=== PATIENT | male | born 1955 | race Caucasian/White ===

== ENCOUNTER 2020-07-23 13:11 | Emergency (ER) | payer MEDICAID, SELFPAY ==
[~2020-07-23] VITALS: Ht 188 cm; Wt 106.0 kg
--- NOTE | 2020-07-23 13:50 | NUR ---
PT BROUGHT BACK TO ROOM FROM TRIAGE VIA WHEELCHAIR. PT STATED THAT HE WAS AT [employer] AND TRIPPED OVER A SMALL CURB, LANDING ON RIGHT SIDE AND HITTING RIGHT SIDE OF FACE ON THE GROUND. PT CO PAIN IN RIGHT SHOULDER, NECK AND SIDE OF FACE. SMALL ABRASION NOTED TO RIGHT EYEBROW. PT DENIES LOC. PT CO NUMBNESS/TINGLING IN HIS RIGHT 4TH AND 5TH FINGERS.
--- NOTE | 2020-07-23 14:00 | NUR ---
PT TO CT
[2020-07-23 14:48] VITALS: BP 129/63
--- NOTE | 2020-07-23 15:30 | NUR ---
C COLLAR REMOVED PER ORDER
[2020-07-23] MEDS ORDERED: DIAZEPAM 5 MG TABLET ONE (16:11)
[2020-07-23] MEDS ORDERED: KETOROLAC 30 MG/1 ML ONE (16:11)
--- NOTE | 2020-07-23 16:24 | NUR ---
DISCHARGE INSTRUCTIONS REVIEWED WITH PT ALL QUESTIONS ANSWERED AT THIS TIME
[2020-07-23] MEDS ORDERED: DIAZEPAM 5 MG TABLET PO ONE (16:30)
[2020-07-23] MEDS ORDERED: KETOROLAC 30 MG/1 ML IM ONE (16:30)
== END 2020-07-23 16:26 | disposition home or self-care (01) ==
LOC: ED 16:00
DX: S16.1XXA Strain of muscle, fascia and tendon at neck level, initial encounter (principal); S05.12XA Contusion of eyeball and orbital tissues, left eye, initial encounter; S09.90XA Unspecified injury of head, initial encounter; M54.2 Cervicalgia; W01.0XXA Fall on same level from slipping, tripping and stumbling without subsequent striking against object, initial encounter; Y93.89 Activity, other specified; Y92.410 Unspecified street and highway as the place of occurrence of the external cause; Y99.8 Other external cause status
CPT/HCPCS: 70450; 70486; 72125; 73030; 96372; 99285; J1885

== ENCOUNTER 2020-10-26 08:39 | Inpatient (IN) | payer MEDICAID, OTHER ==
[~2020-10-26] VITALS: Ht 188 cm; Wt 94.6 kg
--- NOTE | 2020-10-26 08:51 | NUR ---
Secondary RN triaging pt. MD at bedside for exam. Noted eyewear manufacturing tech at bedside on arrival of EMS obtaining 12 lead EKG.
[2020-10-26] MEDS ORDERED: methylPREDNISolone SOD SUCC 125 MG/2 ML ONE (08:58)
[2020-10-26] MEDS ORDERED: CEFTRIAXONE 1,000 MG in DEXTROSE 5% 50 ML IVPB ONE (09:00)
[2020-10-26] MEDS ORDERED: methylPREDNISolone SOD SUCC 125 MG/2 ML IVPush ONE (09:00)
[2020-10-26] MEDS ORDERED: SODIUM CHLORIDE 0.9% 1,000ML IVBOLUS ONE (09:00)
[2020-10-26] MEDS ORDERED: SODIUM CHLORIDE FLUSH 10ML SYR IVF ONE (09:00)
--- NOTE | 2020-10-26 09:09 | NUR ---
First set of BC and basic labs drawn from EMS IV start after cleaning site well. IVF and Solumedrol then given as ordered after PCXR completed. fuel quality tech will be notified of labs already drawn. Rocephin at bedside and ready for admin after second set of BC are drawn.
[2020-10-26 09:21] LABS: BASOPHILS % (AUTO) 0 % (0-1); EOSINOPHILS % (AUTO) 0 % (1-7); LYMPHOCYTES % (AUTO) 13 % (22-44); MEAN CORPUSCULAR HEMOGLOBIN 31.3 pg (27.5-34.5); MEAN CORPUSCULAR HGB CONC 34.8 g/dL (33.2-36.2); MONOCYTES % (AUTO) 10 % (2-9); NEUTROPHILS % (AUTO) 77 % (42-75); PLATELET COUNT 135 x10^3/uL (130-400); RED CELL DISTRIBUTION WIDTH 13.2 % (9.4-14.8)
[2020-10-26 09:29] LABS: ALBUMIN 2.9 g/dL (3.4-5.0); ANION GAP 12 mmol/L (5-15); CALCIUM 7.8 mg/dL (8.5-10.1); CHLORIDE 96 mmol/L (98-107); CREATININE 1.04 mg/dL (0.7-1.3)
--- NOTE | 2020-10-26 09:45 | NUR ---
Pt started on Rocephin now that both sets BC completed. Reviewed PCXR results with pt and son with noted radiology stated bilat pna with likely Covid infection
--- NOTE | 2020-10-26 10:28 | NUR ---
MD at bedside to discuss findings and plan of care.
[2020-10-26] MEDS ORDERED: AZITHROMYCIN 500 MG in SODIUM CHLORIDE 0.9% 250 ML IV ONE (10:30)
[2020-10-26] MEDS ORDERED: ALBUTEROL SULFATE 2.5 MG/3 ML NPPB ONE (10:30)
[2020-10-26] MEDS ORDERED: ALLO300T PO (10:37)
[2020-10-26] MEDS ORDERED: METF500T17 PO (10:37)
[2020-10-26] MEDS ORDERED: ALBU90AE2 INH (10:37)
--- NOTE | 2020-10-26 10:38 | NUR ---
Parital med rec completed. Pt does not have a list of meds and does not recall any of his other medications than those placed on med rec.
[2020-10-26] MEDS ORDERED: ONDANSETRON 2MG/ML, 2ML IVPush PRN (11:00)
[2020-10-26] MEDS ORDERED: ONDANSETRON ODT 4 MG PO PRN (11:00)
[2020-10-26] MEDS ORDERED: Enoxaparin 1 mg/kg protocol SQ SCH (11:00)
--- NOTE | 2020-10-26 11:05 | NUR ---
mobile home technician at bedside for ABG and other labs to be drawn. Son present with soup as pt requested. Pt without acute change and aware we are awaiting a bed assignment. Son notified that visitation must now be stopped and that during pt's stay here there will be no visitation allowed. Son stated understanding, said goodbye to pt and left dept.
--- NOTE | 2020-10-26 12:11 | NUR ---
Report given to Zeenta Epperson, RN and pt readied for transfer to floor.
--- NOTE | 2020-10-26 13:05 | NUR ---
Pt waiting for transport staff to go up. Quick report to break RN that report has been called given.
--- NOTE | 2020-10-26 13:44 | NUR ---
Pt remains in room without having been taken up. Throughput RN notified. Awaiting transport staff availability.
[2020-10-26 14:10] LABS: MICROSCOPIC INDICATED
[2020-10-26] MEDS: INSULIN LISPRO 100 UNITS/ML, PEN SQ-INSULIN SCH ×3 (14:17→21:05)
[2020-10-26 14:53] VITALS: BP 113/69
[2020-10-26] MEDS: SODIUM CHLORIDE 0.9% 1,000 ML IV SCH (14:55)
[2020-10-26] MEDS: BENZONATATE 100 MG CAPSULE PO SCH ×2 (15:44→21:05)
[2020-10-26] MEDS: ENOXAPARIN 40 MG/0.4 ML SQ SCH (16:54)
[2020-10-26 20:36] VITALS: BP 123/76
[2020-10-26] MEDS: CEFTRIAXONE 2,000 MG in DEXTROSE 5% 50 ML IV SCH (21:06)
[2020-10-26] MEDS: ACETAMINOPHEN 325 MG TABLET PO PRN (21:19)
[2020-10-26] MEDS: ALBUTEROL HFA 90 MCG/SPRAY INH PRN (22:20)
[2020-10-27 00:28] VITALS: BP 111/68
[2020-10-27] MEDS: SODIUM CHLORIDE 0.9% 1,000 ML IV SCH (03:49)
[2020-10-27] MEDS: ENOXAPARIN 40 MG/0.4 ML SQ SCH ×2 (05:04→16:25)
[2020-10-27 06:23] LABS: BASOPHILS % (AUTO) 0 % (0-1); EOSINOPHILS % (AUTO) 0 % (1-7); LYMPHOCYTES % (AUTO) 16 % (22-44); MEAN CORPUSCULAR HEMOGLOBIN 31.1 pg (27.5-34.5); MEAN CORPUSCULAR HGB CONC 34.5 g/dL (33.2-36.2); MEAN PLATELET VOLUME 8.4 fL (7.4-10.4); MONOCYTES % (AUTO) 11 % (2-9); NEUTROPHILS % (AUTO) 72 % (42-75); PLATELET COUNT 164 x10^3/uL (130-400); RED BLOOD COUNT 4.69 x10^6/uL (4.38-5.82); RED CELL DISTRIBUTION WIDTH 13.4 % (9.4-14.8)
[2020-10-27 07:14] LABS: ALANINE AMINOTRANSFERASE 51 U/L (12-78); ALBUMIN 2.5 g/dL (3.4-5.0); ANION GAP 10 mmol/L (5-15); CALCIUM 8.3 mg/dL (8.5-10.1); CHLORIDE 103 mmol/L (98-107); CREATININE 0.92 mg/dL (0.7-1.3)
[2020-10-27 07:17] LABS: ALKALINE PHOSPHATASE 51 U/L (45-117); BILIRUBIN,TOTAL 0.4 mg/dL (0.2-1.0)
[2020-10-27 07:22] VITALS: BP 113/73
[2020-10-27] MEDS: ALBUTEROL HFA 90 MCG/SPRAY INH PRN (07:56)
[2020-10-27] MEDS: BENZONATATE 100 MG CAPSULE PO SCH ×3 (07:57→21:21)
[2020-10-27] MEDS: INSULIN LISPRO 100 UNITS/ML, PEN SQ-INSULIN SCH ×4 (07:57→21:22)
[2020-10-27] MEDS: DEXAMETHASONE 4 MG/ML, 5ML IVPush SCH (07:58)
[2020-10-27] MEDS ORDERED: REMDESIVIR 200 MG in SODIUM CHLORIDE 0.9% 250 ML IVPB ONE (09:30)
[2020-10-27] MEDS ORDERED: SODIUM CHLORIDE 0.9% 1,000 ML IV SCH (11:00)
[2020-10-27 12:54] VITALS: BP 127/78
[2020-10-27] MEDS ORDERED: FUROSEMIDE 40 MG/4 ML IV ONE (14:30)
[2020-10-27] MEDS: ACETAMINOPHEN 325 MG TABLET PO PRN (16:24)
[2020-10-27] MEDS: ASCORBIC ACID 500 MG TABLET PO SCH (16:24)
[2020-10-27 19:30] VITALS: BP 114/76
[2020-10-27] MEDS ORDERED: INSULIN GLARGINE 100 UNITS/ML, PEN SQ-INSULIN SCH (21:00)
[2020-10-27] MEDS: CEFTRIAXONE 2,000 MG in DEXTROSE 5% 50 ML IV SCH (21:28)
[2020-10-28] VITALS (19 sets, daily range): BP systolic 96–125; BP diastolic 56–73
[2020-10-28] MEDS: GUAIFENESIN ER 600 MG TABLET PO SCH ×3 (00:57→20:28)
[2020-10-28] MEDS: ACETAMINOPHEN 325 MG TABLET PO PRN (01:43)
[2020-10-28] MEDS: ALBUTEROL HFA 90 MCG/SPRAY INH PRN (05:05)
[2020-10-28 05:47] LABS: ALANINE AMINOTRANSFERASE 46 U/L (12-78); ALBUMIN 2.4 g/dL (3.4-5.0); ANION GAP 8 mmol/L (5-15); CALCIUM 8.3 mg/dL (8.5-10.1); CHLORIDE 105 mmol/L (98-107)
[2020-10-28] MEDS: ENOXAPARIN 40 MG/0.4 ML SQ SCH (05:50)
[2020-10-28 06:06] LABS: ALKALINE PHOSPHATASE 56 U/L (45-117); BILIRUBIN,TOTAL 0.5 mg/dL (0.2-1.0); TOTAL PROTEIN 6.8 g/dL (6.4-8.2)
[2020-10-28] MEDS ORDERED: POTASSIUM CHLORIDE 20 MEQ TAB.ER.PRT PO ONE (06:30)
[2020-10-28] MEDS: REMDESIVIR 100 MG in SODIUM CHLORIDE 0.9% 250 ML IVPB SCH (08:57)
[2020-10-28] MEDS: CHOLECALCIFEROL 1,000 UNIT TABLET PO SCH (08:59)
[2020-10-28] MEDS: BENZONATATE 100 MG CAPSULE PO SCH ×3 (08:59→20:28)
[2020-10-28] MEDS: DEXAMETHASONE 4 MG/ML, 5ML IVPush SCH (09:00)
[2020-10-28] MEDS: ZINC SULFATE 220 MG CAPSULE PO SCH (09:00)
[2020-10-28] MEDS: FUROSEMIDE 40 MG/4 ML IV SCH ×2 (09:00→18:23)
[2020-10-28] MEDS: ASCORBIC ACID 500 MG TABLET PO SCH ×2 (09:00→18:23)
[2020-10-28] MEDS: THIAMINE 100MG TABLET PO SCH (09:00)
[2020-10-28] MEDS: INSULIN LISPRO 100 UNITS/ML, PEN SQ-INSULIN SCH ×4 (09:18→20:27)
[2020-10-28] MEDS: INSULIN GLARGINE 100 UNITS/ML, PEN SQ-INSULIN SCH ×2 (09:19→20:27)
[2020-10-28] MEDS ORDERED: PROPOFOL 100 ML IV ONE ×2 (11:22→14:10)
[2020-10-28] MEDS ORDERED: SUCCINYLCHOLINE 20 MG/ML, 10ML ONE (14:14)
[2020-10-28] MEDS ORDERED: ETOMIDATE 20 MG/10 ML ONE (14:14)
[2020-10-28] MEDS ORDERED: PROPOFOL 10 MG/ML, 100ML IV ONE (14:14)
[2020-10-28] MEDS ORDERED: GLUCAGON 1 MG IM PRN (14:30)
[2020-10-28] MEDS ORDERED: PHARMACY MAY ADJ FOR RENAL FX MC SCH (14:30)
[2020-10-28] MEDS ORDERED: LIDOCAINE-MPF 1%, 2ML ENDO PRN (14:30)
[2020-10-28] MEDS ORDERED: SENNA 176 MG/5 ML ORAL SOL NG PRN (14:30)
[2020-10-28] MEDS ORDERED: SENNA/DOCUSATE TABLET NG PRN (14:30)
[2020-10-28] MEDS ORDERED: BISACODYL 10 MG SUPP PR PRN (14:30)
[2020-10-28] MEDS: PROPOFOL 100 ML IV PRN ×3 (15:46→22:58)
[2020-10-28] MEDS: METRONIDAZOLE PMX 500MG/100ML 100 ML IV SCH ×2 (15:47→21:51)
[2020-10-28] MEDS: PANTOPRAZOLE 40 MG IV IVPush SCH (18:23)
[2020-10-28] MEDS ORDERED: BENZONATATE 100 MG CAPSULE PO/NG SCH (19:44)
[2020-10-28] MEDS: CEFTRIAXONE 2,000 MG in DEXTROSE 5% 50 ML IV SCH (20:28)
[2020-10-29 04:11] LABS: BASOPHILS % (AUTO) 1 % (0-1); EOSINOPHILS % (AUTO) 0 % (1-7); LYMPHOCYTES % (AUTO) 10 % (22-44); MEAN CORPUSCULAR HEMOGLOBIN 31.8 pg (27.5-34.5); MEAN CORPUSCULAR HGB CONC 35.4 g/dL (33.2-36.2); MONOCYTES % (AUTO) 8 % (2-9); NEUTROPHILS % (AUTO) 82 % (42-75); PLATELET COUNT 199 x10^3/uL (130-400); RED BLOOD COUNT 4.76 x10^6/uL (4.38-5.82); RED CELL DISTRIBUTION WIDTH 13.9 % (9.4-14.8)
[2020-10-29 04:22] LABS: ALBUMIN 2.3 g/dL (3.4-5.0); ANION GAP 9 mmol/L (5-15); CALCIUM 8.4 mg/dL (8.5-10.1); CHLORIDE 105 mmol/L (98-107)
[2020-10-29 04:25] LABS: ALANINE AMINOTRANSFERASE 43 U/L (12-78); ALKALINE PHOSPHATASE 54 U/L (45-117); BILIRUBIN,TOTAL 0.5 mg/dL (0.2-1.0); CREATININE 1.15 mg/dL (0.7-1.3); TOTAL PROTEIN 6.9 g/dL (6.4-8.2)
[2020-10-29] MEDS: METRONIDAZOLE PMX 500MG/100ML 100 ML IV SCH ×3 (05:42→21:59)
[2020-10-29] MEDS: PANTOPRAZOLE 40 MG IV IVPush SCH ×2 (05:42→16:57)
[2020-10-29] MEDS: PROPOFOL 100 ML IV PRN ×2 (06:41→16:58)
[2020-10-29] MEDS: INSULIN LISPRO 100 UNITS/ML, PEN SQ-INSULIN SCH ×4 (08:41→20:48)
[2020-10-29] MEDS: INSULIN GLARGINE 100 UNITS/ML, PEN SQ-INSULIN SCH ×2 (08:42→20:48)
[2020-10-29] MEDS: ZINC SULFATE 220 MG CAPSULE PO SCH (08:42)
[2020-10-29] MEDS: GUAIFENESIN ER 600 MG TABLET PO SCH ×2 (08:42→20:47)
[2020-10-29] MEDS: FUROSEMIDE 40 MG/4 ML IV SCH ×2 (08:42→16:57)
[2020-10-29] MEDS: DEXAMETHASONE 4 MG/ML, 5ML IVPush SCH (08:42)
[2020-10-29] MEDS: THIAMINE 100MG TABLET PO SCH (08:43)
[2020-10-29] MEDS: ASCORBIC ACID 500 MG TABLET PO SCH ×2 (08:43→16:57)
[2020-10-29] MEDS: CHOLECALCIFEROL 1,000 UNIT TABLET PO SCH (08:43)
[2020-10-29] MEDS: BENZONATATE 100 MG CAPSULE PO SCH ×3 (09:00→20:47)
[2020-10-29] MEDS ORDERED: CHOLECALCIFEROL 1,000 UNIT TABLET PO ONE (09:30)
[2020-10-29] MEDS ORDERED: ASCORBIC ACID 500 MG TABLET PO ONE (09:30)
[2020-10-29] MEDS: REMDESIVIR 100 MG in SODIUM CHLORIDE 0.9% 250 ML IVPB SCH (10:41)
--- NOTE | 2020-10-29 12:13 | NUR ---
TF recommendations IF needed: Vital HP 60mL/hr ON propofol, 70mL/hr OFF propofol
--- NOTE | 2020-10-29 12:14 | NUR ---
TF recommendations IF needed. Vital HP 60 mL/hr ON propofol, 70mL/hf OFF propofol Addendum: 10/29/20 at [address] Amended: Links added.
[2020-10-29] MEDS: CEFTRIAXONE 2,000 MG in DEXTROSE 5% 50 ML IV SCH (20:47)
[2020-10-30] MEDS: PROPOFOL 100 ML IV PRN ×4 (00:17→22:31)
[2020-10-30] MEDS: METRONIDAZOLE PMX 500MG/100ML 100 ML IV SCH ×3 (05:53→21:29)
[2020-10-30] MEDS: PANTOPRAZOLE 40 MG IV IVPush SCH ×2 (05:53→20:33)
[2020-10-30] MEDS: INSULIN LISPRO 100 UNITS/ML, PEN SQ-INSULIN SCH ×3 (05:55→20:15)
[2020-10-30 07:01] LABS: BASOPHILS % (AUTO) 1 % (0-1); EOSINOPHILS % (AUTO) 0 % (1-7); LYMPHOCYTES % (AUTO) 9 % (22-44); MEAN CORPUSCULAR HEMOGLOBIN 30.9 pg (27.5-34.5); MEAN PLATELET VOLUME 7.8 fL (7.4-10.4); MONOCYTES % (AUTO) 5 % (2-9); NEUTROPHILS % (AUTO) 85 % (42-75); PLATELET COUNT 249 x10^3/uL (130-400); RED BLOOD COUNT 4.82 x10^6/uL (4.38-5.82); RED CELL DISTRIBUTION WIDTH 13.6 % (9.4-14.8)
[2020-10-30 07:09] LABS: ALANINE AMINOTRANSFERASE 51 U/L (12-78); ALBUMIN 2.4 g/dL (3.4-5.0); ANION GAP 9 mmol/L (5-15); CALCIUM 8.7 mg/dL (8.5-10.1); CHLORIDE 108 mmol/L (98-107); CREATININE 0.99 mg/dL (0.7-1.3)
[2020-10-30 07:11] LABS: ALKALINE PHOSPHATASE 57 U/L (45-117); BILIRUBIN,TOTAL 0.6 mg/dL (0.2-1.0)
[2020-10-30] MEDS: BENZONATATE 100 MG CAPSULE PO SCH ×3 (09:00→20:34)
[2020-10-30] MEDS: INSULIN GLARGINE 100 UNITS/ML, PEN SQ-INSULIN SCH ×2 (09:33→20:16)
[2020-10-30] MEDS: FUROSEMIDE 40 MG/4 ML IV SCH ×2 (10:13→20:33)
[2020-10-30] MEDS: ASCORBIC ACID 500 MG TABLET PO SCH ×2 (10:13→15:55)
[2020-10-30] MEDS: CHOLECALCIFEROL 5,000u TAB PO SCH (10:13)
[2020-10-30] MEDS: POTASSIUM CHLORIDE 20 MEQ PACKET PO SCH ×3 (10:13→20:00)
[2020-10-30] MEDS: GUAIFENESIN ER 600 MG TABLET PO SCH (10:13)
[2020-10-30] MEDS: THIAMINE 100MG TABLET PO SCH (10:13)
[2020-10-30] MEDS: ZINC SULFATE 220 MG CAPSULE PO SCH (10:13)
[2020-10-30] MEDS: DEXAMETHASONE 4 MG/ML, 5ML IVPush SCH (10:14)
[2020-10-30] MEDS: REMDESIVIR 100 MG in SODIUM CHLORIDE 0.9% 250 ML IVPB SCH (11:11)
[2020-10-30] MEDS: GUAIFENESIN 100 MG/5 ML, 10ML UDC PO SCH (20:33)
[2020-10-30] MEDS: CEFTRIAXONE 2,000 MG in DEXTROSE 5% 50 ML IV SCH (20:33)
[2020-10-31] MEDS: POTASSIUM CHLORIDE 20 MEQ PACKET PO SCH (01:50)
[2020-10-31] MEDS: INSULIN LISPRO 100 UNITS/ML, PEN SQ-INSULIN SCH ×4 (03:11→21:47)
[2020-10-31] MEDS: PROPOFOL 100 ML IV PRN ×4 (04:36→21:44)
[2020-10-31 05:09] LABS: BASOPHILS % (AUTO) 1 % (0-1); EOSINOPHILS % (AUTO) 0 % (1-7); LYMPHOCYTES % (AUTO) 9 % (22-44); MEAN CORPUSCULAR HEMOGLOBIN 31.1 pg (27.5-34.5); MEAN PLATELET VOLUME 7.9 fL (7.4-10.4); MONOCYTES % (AUTO) 7 % (2-9); NEUTROPHILS % (AUTO) 84 % (42-75); PLATELET COUNT 272 x10^3/uL (130-400); RED BLOOD COUNT 4.81 x10^6/uL (4.38-5.82); RED CELL DISTRIBUTION WIDTH 13.4 % (9.4-14.8)
[2020-10-31 05:21] LABS: ALBUMIN 2.4 g/dL (3.4-5.0); ANION GAP 8 mmol/L (5-15); CALCIUM 8.9 mg/dL (8.5-10.1); CHLORIDE 108 mmol/L (98-107)
[2020-10-31 05:23] LABS: ALANINE AMINOTRANSFERASE 65 U/L (12-78); ALKALINE PHOSPHATASE 58 U/L (45-117); BILIRUBIN,TOTAL 0.6 mg/dL (0.2-1.0); CREATININE 1.15 mg/dL (0.7-1.3); TRIGLYCERIDES 366 mg/dL (50-200)
[2020-10-31] MEDS: METRONIDAZOLE PMX 500MG/100ML 100 ML IV SCH ×3 (06:00→22:15)
[2020-10-31] MEDS: ASCORBIC ACID 500 MG TABLET PO SCH ×2 (08:56→17:00)
[2020-10-31] MEDS: THIAMINE 100MG TABLET PO SCH (08:57)
[2020-10-31] MEDS: ZINC SULFATE 220 MG CAPSULE PO SCH (08:58)
[2020-10-31] MEDS: PANTOPRAZOLE 40 MG IV IVPush SCH ×2 (08:58→21:37)
[2020-10-31] MEDS: FUROSEMIDE 40 MG/4 ML IV SCH ×2 (08:59→21:36)
[2020-10-31] MEDS: DEXAMETHASONE 4 MG/ML, 5ML IVPush SCH (08:59)
[2020-10-31] MEDS: CHOLECALCIFEROL 5,000u TAB PO SCH (08:59)
[2020-10-31] MEDS: GUAIFENESIN 100 MG/5 ML, 10ML UDC PO SCH ×2 (09:00→21:37)
[2020-10-31] MEDS: INSULIN GLARGINE 100 UNITS/ML, PEN SQ-INSULIN SCH ×2 (09:15→21:48)
[2020-10-31] MEDS: REMDESIVIR 100 MG in SODIUM CHLORIDE 0.9% 250 ML IVPB SCH (09:20)
[2020-10-31] MEDS ORDERED: SUCCINYLCHOLINE 20 MG/ML, 10ML ONE (19:38)
[2020-10-31] MEDS ORDERED: PROPOFOL 10 MG/ML, 100ML IV ONE (19:38)
[2020-10-31] MEDS: CEFTRIAXONE 2,000 MG in DEXTROSE 5% 50 ML IV SCH (21:37)
[2020-11-01] MEDS: PROPOFOL 100 ML IV PRN ×2 (01:19→05:47)
[2020-11-01] MEDS: INSULIN LISPRO 100 UNITS/ML, PEN SQ-INSULIN SCH ×3 (03:09→17:00)
[2020-11-01] MEDS: METRONIDAZOLE PMX 500MG/100ML 100 ML IV SCH ×3 (05:45→22:00)
[2020-11-01 07:05] LABS: ANION GAP 10 mmol/L (5-15); CALCIUM 9.3 mg/dL (8.5-10.1); CHLORIDE 110 mmol/L (98-107); CREATININE 1.02 mg/dL (0.7-1.3)
[2020-11-01 07:06] LABS: BASOPHILS % (AUTO) 0 % (0-1); EOSINOPHILS % (AUTO) 0 % (1-7); LYMPHOCYTES % (AUTO) 6 % (22-44); MEAN CORPUSCULAR HEMOGLOBIN 31.3 pg (27.5-34.5); MEAN CORPUSCULAR HGB CONC 34.2 g/dL (33.2-36.2); MEAN PLATELET VOLUME 8.1 fL (7.4-10.4); MONOCYTES % (AUTO) 5 % (2-9); NEUTROPHILS % (AUTO) 88 % (42-75); PLATELET COUNT 306 x10^3/uL (130-400); RED BLOOD COUNT 4.95 x10^6/uL (4.38-5.82); RED CELL DISTRIBUTION WIDTH 13.4 % (9.4-14.8)
[2020-11-01] MEDS: PANTOPRAZOLE 40 MG IV IVPush SCH ×2 (08:10→20:42)
[2020-11-01] MEDS: FUROSEMIDE 40 MG/4 ML IV SCH ×2 (08:10→20:42)
[2020-11-01] MEDS: ASCORBIC ACID 500 MG TABLET PO SCH ×2 (08:10→16:50)
[2020-11-01] MEDS: DEXAMETHASONE 4 MG/ML, 5ML IVPush SCH (08:10)
[2020-11-01] MEDS: THIAMINE 100MG TABLET PO SCH (08:11)
[2020-11-01] MEDS: ZINC SULFATE 220 MG CAPSULE PO SCH (08:11)
[2020-11-01] MEDS: CHOLECALCIFEROL 5,000u TAB PO SCH (08:11)
[2020-11-01] MEDS: GUAIFENESIN 100 MG/5 ML, 10ML UDC PO SCH ×2 (08:12→21:18)
[2020-11-01] MEDS: INSULIN GLARGINE 100 UNITS/ML, PEN SQ-INSULIN SCH ×2 (08:24→20:45)
[2020-11-01] MEDS: DEXMEDETOMIDINE 400 MCG in SODIUM CHLORIDE 0.9% 96 ML IV PRN ×3 (11:08→20:35)
[2020-11-01] MEDS: ENOXAPARIN 40 MG/0.4 ML SQ SCH (13:57)
[2020-11-01] MEDS ORDERED: INSULIN INFUSION FOR ICU PROTOCOL XX PRN (18:00)
[2020-11-01] MEDS ORDERED: GLUCAGON 1 MG IM PRN (18:00)
[2020-11-01] MEDS ORDERED: REGULAR INSULIN 100 UNITS in SODIUM CHLORIDE 0.9% 99 ML IV PRN (18:00)
[2020-11-01] MEDS ORDERED: DEXTROSE 50%, 50ML SYRINGE IVPush PRN (18:00)
[2020-11-01] MEDS ORDERED: DEXTROSE 4 GM TAB.CHEW PO PRN (18:00)
[2020-11-01] MEDS ORDERED: INSULIN REGULAR 100 UNITS/ML, 3ML VIAL IV ONE (18:30)
[2020-11-01] MEDS: REGULAR INSULIN 100 UNITS in SODIUM CHLORIDE 0.9% 99 ML IV PRN (18:42)
[2020-11-01] MEDS: SODIUM CHLORIDE FLUSH 10ML SYR IVF SCH (20:42)
[2020-11-01] MEDS: CEFTRIAXONE 2,000 MG in DEXTROSE 5% 50 ML IV SCH (20:45)
[2020-11-01] MEDS: LACTULOSE 20 GM/30 ML UDC NG PRN (21:30)
[2020-11-02] MEDS: DEXMEDETOMIDINE 400 MCG in SODIUM CHLORIDE 0.9% 96 ML IV PRN ×5 (01:20→22:56)
[2020-11-02] MEDS: ENOXAPARIN 40 MG/0.4 ML SQ SCH ×2 (02:05→14:44)
[2020-11-02] MEDS ORDERED: ETOMIDATE 20 MG/10 ML ONE (03:37)
[2020-11-02] MEDS ORDERED: SUCCINYLCHOLINE 20 MG/ML, 10ML ONE (03:37)
[2020-11-02 03:40] LABS: BASOPHILS % (AUTO) 1 % (0-1); EOSINOPHILS % (AUTO) 1 % (1-7); LYMPHOCYTES % (AUTO) 6 % (22-44); MEAN CORPUSCULAR HEMOGLOBIN 31.1 pg (27.5-34.5); MEAN CORPUSCULAR HGB CONC 33.9 g/dL (33.2-36.2); MEAN PLATELET VOLUME 8.1 fL (7.4-10.4); MONOCYTES % (AUTO) 3 % (2-9); NEUTROPHILS % (AUTO) 89 % (42-75); PLATELET COUNT 286 x10^3/uL (130-400); RED BLOOD COUNT 5.12 x10^6/uL (4.38-5.82); RED CELL DISTRIBUTION WIDTH 13.7 % (9.4-14.8)
[2020-11-02 03:48] LABS: ANION GAP 9 mmol/L (5-15); CALCIUM 9.3 mg/dL (8.5-10.1); CHLORIDE 115 mmol/L (98-107)
[2020-11-02 03:49] LABS: CREATININE 1.08 mg/dL (0.7-1.3)
[2020-11-02] MEDS: REGULAR INSULIN 100 UNITS in SODIUM CHLORIDE 0.9% 99 ML IV PRN ×3 (04:38→22:57)
[2020-11-02] MEDS: METRONIDAZOLE PMX 500MG/100ML 100 ML IV SCH ×3 (05:38→22:56)
[2020-11-02] MEDS: SODIUM CHLORIDE FLUSH 10ML SYR IVF SCH ×2 (09:00→22:20)
[2020-11-02] MEDS: ZINC SULFATE 220 MG CAPSULE PO SCH (09:33)
[2020-11-02] MEDS: CHOLECALCIFEROL 5,000u TAB PO SCH (09:34)
[2020-11-02] MEDS: FUROSEMIDE 40 MG/4 ML IV SCH ×2 (09:34→22:19)
[2020-11-02] MEDS: ASCORBIC ACID 500 MG TABLET PO SCH ×2 (09:34→16:56)
[2020-11-02] MEDS: DEXAMETHASONE 4 MG/ML, 5ML IVPush SCH (09:34)
[2020-11-02] MEDS: THIAMINE 100MG TABLET PO SCH (09:34)
[2020-11-02] MEDS: INSULIN GLARGINE 100 UNITS/ML, PEN SQ-INSULIN SCH ×2 (09:35→22:30)
[2020-11-02] MEDS: PANTOPRAZOLE 40 MG IV IVPush SCH ×2 (09:35→22:19)
[2020-11-02] MEDS: GUAIFENESIN 100 MG/5 ML, 10ML UDC PO SCH ×2 (09:35→22:20)
[2020-11-02] MEDS: FENTANYL PF 1,000 MCG in SODIUM CHLORIDE 0.9% 80 ML IV PRN (15:38)
[2020-11-02] MEDS: CEFTRIAXONE 2,000 MG in DEXTROSE 5% 50 ML IV SCH (22:20)
[2020-11-03] MEDS: ENOXAPARIN 40 MG/0.4 ML SQ SCH ×2 (01:08→12:55)
[2020-11-03] MEDS: DEXMEDETOMIDINE 400 MCG in SODIUM CHLORIDE 0.9% 96 ML IV PRN ×5 (03:09→23:01)
[2020-11-03 04:30] LABS: BASOPHILS % (AUTO) 2 % (0-1); EOSINOPHILS % (AUTO) 1 % (1-7); LYMPHOCYTES % (AUTO) 9 % (22-44); MEAN CORPUSCULAR HEMOGLOBIN 31.4 pg (27.5-34.5); MEAN CORPUSCULAR HGB CONC 34.1 g/dL (33.2-36.2); MEAN PLATELET VOLUME 8.9 fL (7.4-10.4); MONOCYTES % (AUTO) 3 % (2-9); NEUTROPHILS % (AUTO) 86 % (42-75); PLATELET COUNT 270 x10^3/uL (130-400); RED BLOOD COUNT 4.99 x10^6/uL (4.38-5.82); RED CELL DISTRIBUTION WIDTH 13.9 % (9.4-14.8)
[2020-11-03 04:41] LABS: ANION GAP 7 mmol/L (5-15); CALCIUM 9.3 mg/dL (8.5-10.1); CHLORIDE 118 mmol/L (98-107); CREATININE 1.16 mg/dL (0.7-1.3); TRIGLYCERIDES 228 mg/dL (50-200)
[2020-11-03] MEDS: METRONIDAZOLE PMX 500MG/100ML 100 ML IV SCH ×3 (05:07→20:11)
[2020-11-03] MEDS: FENTANYL PF 1,000 MCG in SODIUM CHLORIDE 0.9% 80 ML IV PRN (08:13)
[2020-11-03] MEDS: SODIUM CHLORIDE FLUSH 10ML SYR IVF SCH ×2 (09:00→20:12)
[2020-11-03] MEDS: THIAMINE 100MG TABLET PO SCH (09:00)
[2020-11-03] MEDS: FUROSEMIDE 40 MG/4 ML IV SCH ×2 (09:01→20:12)
[2020-11-03] MEDS: PANTOPRAZOLE 40 MG IV IVPush SCH ×2 (09:01→20:12)
[2020-11-03] MEDS: DEXAMETHASONE 4 MG/ML, 5ML IVPush SCH (09:01)
[2020-11-03] MEDS: ASCORBIC ACID 500 MG TABLET PO SCH ×2 (09:01→17:03)
[2020-11-03] MEDS: CHOLECALCIFEROL 5,000u TAB PO SCH (09:01)
[2020-11-03] MEDS: ZINC SULFATE 220 MG CAPSULE PO SCH (09:01)
[2020-11-03] MEDS: INSULIN GLARGINE 100 UNITS/ML, PEN SQ-INSULIN SCH ×2 (09:02→20:12)
[2020-11-03] MEDS: REMDESIVIR 100 MG in SODIUM CHLORIDE 0.9% 250 ML IVPB SCH (10:27)
[2020-11-03] MEDS: REGULAR INSULIN 100 UNITS in SODIUM CHLORIDE 0.9% 99 ML IV PRN ×2 (12:54→23:02)
[2020-11-03] MEDS ORDERED: ALBUMIN HUMAN 25% 100 ML IV ONE (14:30)
[2020-11-03] MEDS: CEFTRIAXONE 2,000 MG in DEXTROSE 5% 50 ML IV SCH (21:58)
[2020-11-04] MEDS: ENOXAPARIN 40 MG/0.4 ML SQ SCH ×3 (01:30→21:55)
[2020-11-04] MEDS: DEXMEDETOMIDINE 400 MCG in SODIUM CHLORIDE 0.9% 96 ML IV PRN ×4 (03:25→21:54)
[2020-11-04] MEDS: METRONIDAZOLE PMX 500MG/100ML 100 ML IV SCH (04:06)
[2020-11-04 04:45] LABS: ALANINE AMINOTRANSFERASE 26 U/L (12-78); ANION GAP 7 mmol/L (5-15); CALCIUM 9.5 mg/dL (8.5-10.1); CHLORIDE 118 mmol/L (98-107); CREATININE 1.13 mg/dL (0.7-1.3)
[2020-11-04 04:48] LABS: ALKALINE PHOSPHATASE 42 U/L (45-117); BILIRUBIN,TOTAL 0.6 mg/dL (0.2-1.0); D-DIMER 1.43 ug/mlFEU (0.00-0.52)
[2020-11-04 04:49] LABS: FIBRINOGEN > 713 mg/dL (200-340)
[2020-11-04 04:58] LABS: BASOPHILS % (AUTO) 0 % (0-1); EOSINOPHILS % (AUTO) 0 % (1-7); LYMPHOCYTES % (AUTO) 11 % (22-44); MEAN CORPUSCULAR HEMOGLOBIN 31.4 pg (27.5-34.5); MEAN CORPUSCULAR HGB CONC 33.7 g/dL (33.2-36.2); MEAN PLATELET VOLUME 9.3 fL (7.4-10.4); MONOCYTES % (AUTO) 4 % (2-9); NEUTROPHILS % (AUTO) 85 % (42-75); PLATELET COUNT 250 x10^3/uL (130-400); RED BLOOD COUNT 4.33 x10^6/uL (4.38-5.82); RED CELL DISTRIBUTION WIDTH 13.8 % (9.4-14.8)
[2020-11-04] MEDS: ZINC SULFATE 220 MG CAPSULE PO SCH (09:04)
[2020-11-04] MEDS: ASCORBIC ACID 500 MG TABLET PO SCH ×2 (09:04→16:56)
[2020-11-04] MEDS: PANTOPRAZOLE 40 MG IV IVPush SCH ×2 (09:05→21:54)
[2020-11-04] MEDS: CHOLECALCIFEROL 5,000u TAB PO SCH (09:05)
[2020-11-04] MEDS: THIAMINE 100MG TABLET PO SCH (09:05)
[2020-11-04] MEDS: DEXAMETHASONE 4 MG/ML, 5ML IVPush SCH (09:05)
[2020-11-04] MEDS: FUROSEMIDE 40 MG/4 ML IV SCH (09:05)
[2020-11-04] MEDS: SODIUM CHLORIDE FLUSH 10ML SYR IVF SCH ×2 (09:06→21:54)
[2020-11-04] MEDS: REMDESIVIR 100 MG in SODIUM CHLORIDE 0.9% 250 ML IVPB SCH (10:04)
[2020-11-04] MEDS: REGULAR INSULIN 100 UNITS in SODIUM CHLORIDE 0.9% 99 ML IV PRN ×2 (10:06→20:54)
[2020-11-04] MEDS: FENTANYL PF 1,000 MCG in SODIUM CHLORIDE 0.9% 80 ML IV PRN (10:55)
[2020-11-04] MEDS ORDERED: ALBUMIN HUMAN 25% 100 ML IV ONE (12:30)
[2020-11-04] MEDS: CEFTRIAXONE 2,000 MG in DEXTROSE 5% 50 ML IV SCH (22:14)
[2020-11-05] MEDS: DEXMEDETOMIDINE 400 MCG in SODIUM CHLORIDE 0.9% 96 ML IV PRN ×3 (04:03→18:02)
[2020-11-05 04:41] LABS: BASOPHILS % (AUTO) 0 % (0-1); EOSINOPHILS % (AUTO) 0 % (1-7); LYMPHOCYTES % (AUTO) 8 % (22-44); MEAN CORPUSCULAR HEMOGLOBIN 30.7 pg (27.5-34.5); MEAN CORPUSCULAR HGB CONC 32.8 g/dL (33.2-36.2); MONOCYTES % (AUTO) 5 % (2-9); NEUTROPHILS % (AUTO) 87 % (42-75); PLATELET COUNT 207 x10^3/uL (130-400); RED BLOOD COUNT 4.21 x10^6/uL (4.38-5.82); RED CELL DISTRIBUTION WIDTH 14.4 % (9.4-14.8)
[2020-11-05 04:47] LABS: ALBUMIN 2.6 g/dL (3.4-5.0); CALCIUM 9.1 mg/dL (8.5-10.1)
[2020-11-05 04:48] LABS: D-DIMER 0.93 ug/mlFEU (0.00-0.52)
[2020-11-05 04:59] LABS: ALANINE AMINOTRANSFERASE 20 U/L (12-78); ANION GAP 7 mmol/L (5-15); CHLORIDE 117 mmol/L (98-107); CREATININE 0.82 mg/dL (0.7-1.3)
[2020-11-05 05:01] LABS: ALKALINE PHOSPHATASE 37 U/L (45-117); BILIRUBIN,TOTAL 0.6 mg/dL (0.2-1.0); TOTAL PROTEIN 6.6 g/dL (6.4-8.2)
[2020-11-05] MEDS: REGULAR INSULIN 100 UNITS in SODIUM CHLORIDE 0.9% 99 ML IV PRN ×2 (07:44→16:16)
[2020-11-05] MEDS: ENOXAPARIN 40 MG/0.4 ML SQ SCH ×2 (09:02→21:59)
[2020-11-05] MEDS: CHOLECALCIFEROL 5,000u TAB PO SCH (09:03)
[2020-11-05] MEDS: DEXAMETHASONE 4 MG/ML, 5ML IVPush SCH (09:03)
[2020-11-05] MEDS: THIAMINE 100MG TABLET PO SCH (09:03)
[2020-11-05] MEDS: ZINC SULFATE 220 MG CAPSULE PO SCH (09:03)
[2020-11-05] MEDS: ASCORBIC ACID 500 MG TABLET PO SCH ×2 (09:04→17:43)
[2020-11-05] MEDS: PANTOPRAZOLE 40 MG IV IVPush SCH ×2 (09:24→21:59)
[2020-11-05] MEDS: SODIUM CHLORIDE FLUSH 10ML SYR IVF SCH ×2 (09:24→21:59)
[2020-11-05] MEDS: REMDESIVIR 100 MG in SODIUM CHLORIDE 0.9% 250 ML IVPB SCH (10:17)
[2020-11-05] MEDS: FENTANYL PF 1,000 MCG in SODIUM CHLORIDE 0.9% 80 ML IV PRN (10:59)
--- NOTE | 2020-11-05 13:24 | NUR ---
11/05:Change TF to Vital AF,goal: 60 ml/hr on propofol, 70 ml/hr off propofol Addendum: 11/05/20 at [address] Amended: Links added.
[2020-11-06] MEDS: DEXMEDETOMIDINE 400 MCG in SODIUM CHLORIDE 0.9% 96 ML IV PRN ×4 (00:46→22:12)
[2020-11-06] MEDS: REGULAR INSULIN 100 UNITS in SODIUM CHLORIDE 0.9% 99 ML IV PRN (00:47)
[2020-11-06 04:37] LABS: BASOPHILS % (AUTO) 1 % (0-1); EOSINOPHILS % (AUTO) 1 % (1-7); LYMPHOCYTES % (AUTO) 11 % (22-44); MEAN CORPUSCULAR HEMOGLOBIN 31.5 pg (27.5-34.5); MEAN CORPUSCULAR HGB CONC 33.8 g/dL (33.2-36.2); MEAN PLATELET VOLUME 9.1 fL (7.4-10.4); MONOCYTES % (AUTO) 5 % (2-9); NEUTROPHILS % (AUTO) 82 % (42-75); PLATELET COUNT 190 x10^3/uL (130-400); RED BLOOD COUNT 4.12 x10^6/uL (4.38-5.82); RED CELL DISTRIBUTION WIDTH 14.1 % (9.4-14.8)
[2020-11-06 04:54] LABS: CHLORIDE 114 mmol/L (98-107)
[2020-11-06 05:02] LABS: ALANINE AMINOTRANSFERASE 24 U/L (12-78); ALBUMIN 2.4 g/dL (3.4-5.0); ALKALINE PHOSPHATASE 40 U/L (45-117); ANION GAP 5 mmol/L (5-15); BILIRUBIN,TOTAL 0.6 mg/dL (0.2-1.0); CALCIUM 8.7 mg/dL (8.5-10.1); TOTAL PROTEIN 6.5 g/dL (6.4-8.2); TRIGLYCERIDES 286 mg/dL (50-200)
[2020-11-06] MEDS: INSULIN GLARGINE 100 UNITS/ML, PEN SQ-INSULIN SCH ×2 (08:43→19:42)
[2020-11-06] MEDS: INSULIN LISPRO 100 UNITS/ML, PEN SQ-INSULIN SCH ×4 (08:44→19:42)
[2020-11-06] MEDS: POTASSIUM CHLORIDE 20 MEQ PACKET PO SCH ×2 (08:46→17:42)
[2020-11-06] MEDS: ASCORBIC ACID 500 MG TABLET PO SCH ×2 (08:46→17:43)
[2020-11-06] MEDS: SODIUM CHLORIDE FLUSH 10ML SYR IVF SCH ×2 (08:46→20:45)
[2020-11-06] MEDS: PANTOPRAZOLE 40 MG IV IVPush SCH (08:47)
[2020-11-06] MEDS: ZINC SULFATE 220 MG CAPSULE PO SCH (08:47)
[2020-11-06] MEDS: CHOLECALCIFEROL 5,000u TAB PO SCH (08:48)
[2020-11-06] MEDS: THIAMINE 100MG TABLET PO SCH (08:48)
[2020-11-06] MEDS: ENOXAPARIN 40 MG/0.4 ML SQ SCH ×2 (08:49→20:45)
[2020-11-06] MEDS: REMDESIVIR 100 MG in SODIUM CHLORIDE 0.9% 250 ML IVPB SCH (10:32)
--- NOTE | 2020-11-06 14:24 | NUR ---
Tube Feeds: Vital AF: Goal on propofol: 70 ml/hr, off propofol: 80 ml/hr Addendum: 11/06/20 at [address] Amended: Links added.
[2020-11-06] MEDS: FUROSEMIDE 40 MG/4 ML IV SCH (17:42)
[2020-11-06] MEDS: FENTANYL PF 1,000 MCG in SODIUM CHLORIDE 0.9% 80 ML IV PRN (19:45)
[2020-11-06] MEDS: LACTULOSE 20 GM/30 ML UDC NG PRN (20:45)
[2020-11-07] MEDS: INSULIN LISPRO 100 UNITS/ML, PEN SQ-INSULIN SCH ×6 (00:09→20:01)
[2020-11-07 04:02] LABS: BASOPHILS % (AUTO) 1 % (0-1); EOSINOPHILS % (AUTO) 0 % (1-7); LYMPHOCYTES % (AUTO) 11 % (22-44); MEAN CORPUSCULAR HGB CONC 33.2 g/dL (33.2-36.2); MEAN PLATELET VOLUME 9.9 fL (7.4-10.4); MONOCYTES % (AUTO) 6 % (2-9); NEUTROPHILS % (AUTO) 83 % (42-75); PLATELET COUNT 170 x10^3/uL (130-400); RED CELL DISTRIBUTION WIDTH 13.8 % (9.4-14.8)
[2020-11-07 04:05] LABS: ALANINE AMINOTRANSFERASE 26 U/L (12-78); ALBUMIN 2.2 g/dL (3.4-5.0); ANION GAP 7 mmol/L (5-15); CALCIUM 8.6 mg/dL (8.5-10.1); CHLORIDE 109 mmol/L (98-107); CREATININE 0.86 mg/dL (0.7-1.3)
[2020-11-07 04:07] LABS: ALKALINE PHOSPHATASE 43 U/L (45-117); BILIRUBIN,TOTAL 0.6 mg/dL (0.2-1.0); TOTAL PROTEIN 6.4 g/dL (6.4-8.2)
[2020-11-07] MEDS: DEXMEDETOMIDINE 400 MCG in SODIUM CHLORIDE 0.9% 96 ML IV PRN ×2 (06:54→16:56)
[2020-11-07] MEDS: FUROSEMIDE 40 MG/4 ML IV SCH ×2 (07:57→16:56)
[2020-11-07] MEDS: SODIUM CHLORIDE FLUSH 10ML SYR IVF SCH ×2 (07:59→20:57)
[2020-11-07] MEDS: INSULIN GLARGINE 100 UNITS/ML, PEN SQ-INSULIN SCH ×2 (08:03→20:02)
[2020-11-07] MEDS: PANTOPRAZOLE 40 MG IV IVPush SCH (08:06)
[2020-11-07] MEDS: ASCORBIC ACID 500 MG TABLET PO SCH ×2 (08:06→16:58)
[2020-11-07] MEDS: THIAMINE 100MG TABLET PO SCH (08:07)
[2020-11-07] MEDS: CHOLECALCIFEROL 5,000u TAB PO SCH (08:07)
[2020-11-07] MEDS: ZINC SULFATE 220 MG CAPSULE PO SCH (08:07)
[2020-11-07] MEDS: ENOXAPARIN 40 MG/0.4 ML SQ SCH ×2 (08:07→20:57)
[2020-11-07] MEDS: ERYTHROMYCIN OPHTH 0.5%, 1GM OP SCH ×3 (09:49→20:57)
[2020-11-07] MEDS: REMDESIVIR 100 MG in SODIUM CHLORIDE 0.9% 250 ML IVPB SCH (09:49)
[2020-11-08] MEDS: INSULIN LISPRO 100 UNITS/ML, PEN SQ-INSULIN SCH ×6 (00:07→19:41)
[2020-11-08] MEDS: DEXMEDETOMIDINE 400 MCG in SODIUM CHLORIDE 0.9% 96 ML IV PRN ×3 (02:02→17:16)
[2020-11-08] MEDS: ERYTHROMYCIN OPHTH 0.5%, 1GM OP SCH ×4 (03:00→21:55)
[2020-11-08 04:03] LABS: ANION GAP 5 mmol/L (5-15); CALCIUM 8.8 mg/dL (8.5-10.1); CHLORIDE 109 mmol/L (98-107); CREATININE 0.75 mg/dL (0.7-1.3)
[2020-11-08 04:11] LABS: BASOPHILS % (AUTO) 1 % (0-1); EOSINOPHILS % (AUTO) 1 % (1-7); LYMPHOCYTES % (AUTO) 11 % (22-44); MEAN CORPUSCULAR HEMOGLOBIN 31.2 pg (27.5-34.5); MEAN CORPUSCULAR HGB CONC 33.7 g/dL (33.2-36.2); MEAN PLATELET VOLUME 10.1 fL (7.4-10.4); MONOCYTES % (AUTO) 5 % (2-9); NEUTROPHILS % (AUTO) 83 % (42-75); PLATELET COUNT 167 x10^3/uL (130-400); RED BLOOD COUNT 4.19 x10^6/uL (4.38-5.82)
[2020-11-08] MEDS: FENTANYL PF 1,000 MCG in SODIUM CHLORIDE 0.9% 80 ML IV PRN (04:37)
[2020-11-08] MEDS: PANTOPRAZOLE 40 MG IV IVPush SCH (07:52)
[2020-11-08] MEDS: FUROSEMIDE 40 MG/4 ML IV SCH ×2 (07:52→17:16)
[2020-11-08] MEDS: SODIUM CHLORIDE FLUSH 10ML SYR IVF SCH ×2 (07:52→21:55)
[2020-11-08] MEDS: ENOXAPARIN 40 MG/0.4 ML SQ SCH ×2 (07:53→21:55)
[2020-11-08] MEDS: CHOLECALCIFEROL 5,000u TAB PO SCH (07:53)
[2020-11-08] MEDS: ASCORBIC ACID 500 MG TABLET PO SCH ×2 (07:53→17:16)
[2020-11-08] MEDS: INSULIN GLARGINE 100 UNITS/ML, PEN SQ-INSULIN SCH ×2 (07:58→19:41)
[2020-11-09] MEDS: INSULIN LISPRO 100 UNITS/ML, PEN SQ-INSULIN SCH ×6 (00:33→20:59)
[2020-11-09] MEDS: DEXMEDETOMIDINE 400 MCG in SODIUM CHLORIDE 0.9% 96 ML IV PRN ×4 (00:40→16:21)
[2020-11-09] MEDS: ERYTHROMYCIN OPHTH 0.5%, 1GM OP SCH ×4 (03:57→21:04)
[2020-11-09 04:20] LABS: BASOPHILS % (AUTO) 1 % (0-1); EOSINOPHILS % (AUTO) 1 % (1-7); LYMPHOCYTES % (AUTO) 14 % (22-44); MEAN CORPUSCULAR HEMOGLOBIN 31.2 pg (27.5-34.5); MEAN CORPUSCULAR HGB CONC 33.2 g/dL (33.2-36.2); MEAN PLATELET VOLUME 10.3 fL (7.4-10.4); MONOCYTES % (AUTO) 6 % (2-9); NEUTROPHILS % (AUTO) 79 % (42-75); PLATELET COUNT 195 x10^3/uL (130-400); RED BLOOD COUNT 4.33 x10^6/uL (4.38-5.82); RED CELL DISTRIBUTION WIDTH 14.2 % (9.4-14.8)
[2020-11-09 04:29] LABS: ANION GAP 6 mmol/L (5-15); CALCIUM 9.1 mg/dL (8.5-10.1); CHLORIDE 107 mmol/L (98-107); CREATININE 0.82 mg/dL (0.7-1.3); TRIGLYCERIDES 210 mg/dL (50-200)
[2020-11-09] MEDS: ASCORBIC ACID 500 MG TABLET PO SCH ×2 (08:00→16:01)
[2020-11-09] MEDS ORDERED: ASCORBIC ACID 250 MG TAB ONE (08:43)
[2020-11-09] MEDS: PANTOPRAZOLE 40 MG IV IVPush SCH (08:58)
[2020-11-09] MEDS: metFORMIN 500 MG TABLET PO SCH ×2 (08:58→16:00)
[2020-11-09] MEDS: FUROSEMIDE 40 MG/4 ML IV SCH ×2 (08:58→16:00)
[2020-11-09] MEDS: SODIUM CHLORIDE FLUSH 10ML SYR IVF SCH ×2 (08:58→21:01)
[2020-11-09] MEDS: CHOLECALCIFEROL 5,000u TAB PO SCH (08:58)
[2020-11-09] MEDS: ENOXAPARIN 40 MG/0.4 ML SQ SCH ×2 (08:59→21:01)
[2020-11-09] MEDS: INSULIN GLARGINE 100 UNITS/ML, PEN SQ-INSULIN SCH ×2 (09:05→21:00)
[2020-11-09] MEDS: FENTANYL PF 1,000 MCG in SODIUM CHLORIDE 0.9% 80 ML IV PRN (21:02)
[2020-11-09] MEDS ORDERED: SODIUM CHLORIDE 0.9%, 500ML IVBOLUS ONE (23:30)
[2020-11-10] MEDS: DEXMEDETOMIDINE 400 MCG in SODIUM CHLORIDE 0.9% 96 ML IV PRN (00:01)
[2020-11-10] MEDS: INSULIN LISPRO 100 UNITS/ML, PEN SQ-INSULIN SCH ×6 (00:12→19:49)
[2020-11-10] MEDS: ERYTHROMYCIN OPHTH 0.5%, 1GM OP SCH ×4 (03:49→20:29)
[2020-11-10] MEDS: DEXMEDETOMIDINE 1,000 MCG in SODIUM CHLORIDE 0.9% 240 ML IV PRN ×2 (04:01→17:00)
[2020-11-10 07:08] LABS: BASOPHILS % (AUTO) 1 % (0-1); EOSINOPHILS % (AUTO) 1 % (1-7); LYMPHOCYTES % (AUTO) 16 % (22-44); MEAN CORPUSCULAR HEMOGLOBIN 30.9 pg (27.5-34.5); MEAN CORPUSCULAR HGB CONC 33.2 g/dL (33.2-36.2); MEAN PLATELET VOLUME 9.8 fL (7.4-10.4); MONOCYTES % (AUTO) 9 % (2-9); NEUTROPHILS % (AUTO) 73 % (42-75); PLATELET COUNT 177 x10^3/uL (130-400); RED BLOOD COUNT 3.94 x10^6/uL (4.38-5.82); RED CELL DISTRIBUTION WIDTH 14.1 % (9.4-14.8)
[2020-11-10 07:13] LABS: ANION GAP 4 mmol/L (5-15); CALCIUM 8.9 mg/dL (8.5-10.1); CHLORIDE 109 mmol/L (98-107); CREATININE 0.72 mg/dL (0.7-1.3)
[2020-11-10] MEDS: metFORMIN 500 MG TABLET PO SCH ×2 (07:36→15:45)
[2020-11-10] MEDS: ENOXAPARIN 40 MG/0.4 ML SQ SCH ×2 (07:36→20:31)
[2020-11-10] MEDS: ASCORBIC ACID 500 MG TABLET PO SCH (07:36)
[2020-11-10] MEDS: CHOLECALCIFEROL 5,000u TAB PO SCH (07:36)
[2020-11-10] MEDS: PANTOPRAZOLE 40 MG IV IVPush SCH (07:36)
[2020-11-10] MEDS: SODIUM CHLORIDE FLUSH 10ML SYR IVF SCH ×2 (07:36→20:29)
[2020-11-10] MEDS: INSULIN GLARGINE 100 UNITS/ML, PEN SQ-INSULIN SCH ×2 (07:42→19:48)
[2020-11-10] MEDS: LACTULOSE 20 GM/30 ML UDC NG PRN (17:00)
[2020-11-10] MEDS ORDERED: NOREPINEPHRINE 8 MG in SODIUM CHLORIDE 0.9% 242 ML IV PRN (18:00)
[2020-11-11] MEDS: INSULIN LISPRO 100 UNITS/ML, PEN SQ-INSULIN SCH ×6 (00:18→20:01)
[2020-11-11] MEDS: ERYTHROMYCIN OPHTH 0.5%, 1GM OP SCH (03:30)
[2020-11-11] MEDS: DEXMEDETOMIDINE 1,000 MCG in SODIUM CHLORIDE 0.9% 240 ML IV PRN (04:26)
[2020-11-11 04:42] LABS: BASOPHILS % (AUTO) 1 % (0-1); EOSINOPHILS % (AUTO) 1 % (1-7); LYMPHOCYTES % (AUTO) 12 % (22-44); MEAN CORPUSCULAR HEMOGLOBIN 30.9 pg (27.5-34.5); MONOCYTES % (AUTO) 9 % (2-9); NEUTROPHILS % (AUTO) 78 % (42-75); PLATELET COUNT 181 x10^3/uL (130-400); RED BLOOD COUNT 4.07 x10^6/uL (4.38-5.82); RED CELL DISTRIBUTION WIDTH 14.1 % (9.4-14.8)
[2020-11-11 04:53] LABS: ANION GAP 4 mmol/L (5-15); CALCIUM 8.6 mg/dL (8.5-10.1); CHLORIDE 112 mmol/L (98-107); CREATININE 0.61 mg/dL (0.7-1.3)
[2020-11-11] MEDS: INSULIN GLARGINE 100 UNITS/ML, PEN SQ-INSULIN SCH ×2 (07:28→20:00)
[2020-11-11] MEDS: ENOXAPARIN 40 MG/0.4 ML SQ SCH ×2 (07:29→21:05)
[2020-11-11] MEDS: POTASSIUM CHLORIDE 20 MEQ PACKET PO SCH ×2 (07:29→17:42)
[2020-11-11] MEDS: metFORMIN 500 MG TABLET PO SCH ×2 (07:29→17:42)
[2020-11-11] MEDS: SODIUM CHLORIDE FLUSH 10ML SYR IVF SCH ×2 (07:30→20:01)
[2020-11-11] MEDS: FUROSEMIDE 40 MG/4 ML IV SCH (07:30)
[2020-11-11] MEDS: PANTOPRAZOLE 40 MG IV IVPush SCH (07:30)
[2020-11-12] MEDS: INSULIN LISPRO 100 UNITS/ML, PEN SQ-INSULIN SCH ×5 (03:35→20:07)
[2020-11-12 04:43] LABS: BASOPHILS % (AUTO) 1 % (0-1); EOSINOPHILS % (AUTO) 2 % (1-7); LYMPHOCYTES % (AUTO) 14 % (22-44); MEAN CORPUSCULAR HEMOGLOBIN 31.2 pg (27.5-34.5); MEAN CORPUSCULAR HGB CONC 33.5 g/dL (33.2-36.2); MEAN PLATELET VOLUME 9.2 fL (7.4-10.4); MONOCYTES % (AUTO) 10 % (2-9); NEUTROPHILS % (AUTO) 74 % (42-75); PLATELET COUNT 180 x10^3/uL (130-400); RED BLOOD COUNT 3.93 x10^6/uL (4.38-5.82); RED CELL DISTRIBUTION WIDTH 14.2 % (9.4-14.8)
[2020-11-12 04:54] LABS: ALBUMIN 1.8 g/dL (3.4-5.0); ANION GAP 4 mmol/L (5-15); CALCIUM 8.7 mg/dL (8.5-10.1); CHLORIDE 113 mmol/L (98-107); CREATININE 0.67 mg/dL (0.7-1.3)
[2020-11-12] MEDS: INSULIN GLARGINE 100 UNITS/ML, PEN SQ-INSULIN SCH ×2 (06:42→20:05)
[2020-11-12] MEDS: metFORMIN 500 MG TABLET PO SCH ×2 (08:01→17:39)
[2020-11-12] MEDS: ENOXAPARIN 40 MG/0.4 ML SQ SCH ×2 (08:02→20:04)
[2020-11-12] MEDS: PANTOPRAZOLE 40 MG IV IVPush SCH (08:02)
[2020-11-12] MEDS: FUROSEMIDE 40 MG/4 ML IV SCH (08:03)
[2020-11-12] MEDS: SODIUM CHLORIDE FLUSH 10ML SYR IVF SCH ×2 (08:19→20:11)
[2020-11-12] MEDS ORDERED: POTASSIUM CHLORIDE 20 MEQ PACKET ONE (08:39)
[2020-11-12] MEDS ORDERED: POTASSIUM CHLORIDE 20 MEQ TAB.ER.PRT PO ONE (09:00)
[2020-11-12] MEDS: MORPHINE SULFATE 4 MG/ML, 1ML IVPush PRN ×2 (12:24→17:53)
[2020-11-12 13:02] VITALS: BP 113/64
[2020-11-12 20:19] VITALS: BP 121/64
[2020-11-13] MEDS: ACETAMINOPHEN 325 MG TABLET PO PRN (00:35)
[2020-11-13 01:03] VITALS: BP 119/63
[2020-11-13] MEDS: INSULIN LISPRO 100 UNITS/ML, PEN SQ-INSULIN SCH (03:41)
[2020-11-13 06:30] LABS: CHLORIDE 114 mmol/L (98-107)
[2020-11-13 06:35] LABS: ANION GAP 7 mmol/L (5-15); CALCIUM 9.7 mg/dL (8.5-10.1); CREATININE 0.84 mg/dL (0.7-1.3)
[2020-11-13] MEDS: INSULIN GLARGINE 100 UNITS/ML, PEN SQ-INSULIN SCH (07:30)
[2020-11-13 08:21] VITALS: BP 139/59
== END 2020-11-13 10:20 | disposition hospice, home (50) | DRG 720 ==
LOC: ED 09:39 → EDIP 10:22 → 3N 13:59 → CCU 10-28 05:32 → 3N 11-12 11:10
PROVIDERS: ADMIT Internal Medicine; ATTEND Internal Medicine
PROC: XW033E5 Introduction of Remdesivir Anti-infective into Peripheral Vein, Percutaneous Approach, New Technology Group 5 (ICD-10-PCS; 2020-10-27)
PROC: 5A1955Z Respiratory Ventilation, Greater than 96 Consecutive Hours (ICD-10-PCS; principal; 2020-10-28)
PROC: 0BH17EZ Insertion of Endotracheal Airway into Trachea, Via Natural or Artificial Opening (ICD-10-PCS; 2020-10-28)
PROC: 5A09357 Assistance with Respiratory Ventilation, Less than 24 Consecutive Hours, Continuous Positive Airway Pressure (ICD-10-PCS; 2020-10-28)
DX: A41.89 Other specified sepsis (principal); J96.01 Acute respiratory failure with hypoxia; J12.82 Pneumonia due to coronavirus disease 2019; J44.0 Chronic obstructive pulmonary disease with (acute) lower respiratory infection; J44.1 Chronic obstructive pulmonary disease with (acute) exacerbation; G93.41 Metabolic encephalopathy; U07.1 COVID-19; E87.1 Hypo-osmolality and hyponatremia; E88.09 Other disorders of plasma-protein metabolism, not elsewhere classified; E11.65 Type 2 diabetes mellitus with hyperglycemia; E87.6 Hypokalemia; F41.9 Anxiety disorder, unspecified; H10.9 Unspecified conjunctivitis; I80.8 Phlebitis and thrombophlebitis of other sites; E66.9 Obesity, unspecified; Z51.5 Encounter for palliative care; Z99.11 Dependence on respirator [ventilator] status; Z68.26 Body mass index [BMI] 26.0-26.9, adult
CPT/HCPCS: 36415; 36600; 71045; 76770; 80048; 80053; 81001; 82040; 82533; 82728; 82803; 82947; 82962; 83036; 83605; 83615; 83735; 83880; 84100; 84145; 84478; 85014; 85018; 85025; 85379; 85384; 86140; 87040; 87070; 87081; 87205; 93005; 94002; 94003; 94660; 94690; 96361; 96365; 96375; G0378; J0456; J0696; J1100; J1650; J1815; J1940; J2405; J2704; J3010; P9047; U0005; C9113; J0330; J2270; J2930; J7030; J7040; J7050; U0003

== ENCOUNTER 2020-11-13 09:34 | Inpatient (IN) | payer MEDICAID | END 2020-11-13 12:42 | DRG 137 | LOC: 3N 10:21 | PROVIDERS: ADMIT Internal Medicine; ATTEND Internal Medicine | DX: U07.1 COVID-19 (principal); J96.01 Acute respiratory failure with hypoxia; J12.82 Pneumonia due to coronavirus disease 2019; F41.9 Anxiety disorder, unspecified; E11.9 Type 2 diabetes mellitus without complications; H26.9 Unspecified cataract; Z79.84 Long term (current) use of oral hypoglycemic drugs ==